=== PATIENT | male | born 1965 | race Caucasian/White ===

== ENCOUNTER 2016-08-02 22:30 | Emergency (ER) | payer BC ==
[2016-08-02] MEDS ORDERED: CLINDAMYCIN 600MG/50ML PREMIX 600 MG/50 ML BAG IVPB ONE (22:37)
--- NOTE | 2016-08-02 22:41 | Emergency Department Record ---
History of Present Illness - General Chief Complaint: Ankle/Foot Injury Stated Complaint: LT FOOT SWOLLEN Time Seen by Provider: 08/02/16 22:35 Source: Patient, Family, Old records reviewed Limitations: No limitations - History of Present Illness Initial Comments: 51 yo male presents with left heel redness, warmth, swelling and pain. No injury. The onset was 2 days ago. He had similar symptoms 01/2016 on the left foot that was closer to the toes. No fever. No current streaking. No overuse in the history. No history of gout. PCP is Aneudy LINDO Complaint: Other (foot pain and redness) -: Days(s) (2) Injury: Ankle: Left, Foot: Left Type of Injury: Other (No injury) Place: Home Severity: Moderate Improves With: Immobilization Worsens With: Weight bearing Context: Other (no injury) Associated Symptoms: Swelling, Other (warm and red) Treatments Prior to Arrival: Other (none) - Related Data Home Medications Medication Instructions Recorded Confirmed Last Taken Fluticasone/Salmeterol [Advair 1 each INH ASDIR 02/02/16 08/02/16 08/02/16 250-50 Diskus] Lisinopril [Zestril] 20 mg PO QHS 02/02/16 08/02/16 08/02/16 Lisinopril/Hydrochlorothiazide 1 each PO DAILY 02/02/16 08/02/16 08/02/16 [Lisinopril-Hctz 20-25 mg Tab] Simvastatin [Simvastatin] 40 mg PO QHS 02/02/16 08/02/16 08/02/16 Tiotropium [place] [Spiriva] 1 each INH ASDIR 02/02/16 08/02/16 08/02/16 Previous Rx's Medication Instructions Recorded Clindamycin HCl [Cleocin HCl] 300 mg PO QID #40 capsule 08/02/16 Hydrocodone/Acetaminophen [[place] 1 each PO Q6H #15 tablet 08/02/16 7.5-325 Tablet] Allergies Allergy/AdvReac Type Severity Reaction Status Date / Time No Known Drug Allergies Allergy Verified 02/02/16 15:35 Review of Systems Constitutional: Denies: Chills, Fever, Malaise, Weakness Eyes: Denies: Eye discharge ENT: Denies: Congestion, Throat pain Respiratory: Denies: Cough Cardiovascular: Denies: Chest pain, Palpitations, Syncope Endocrine: Denies: Fatigue Gastrointestinal: Denies: Abdominal pain, Diarrhea, Nausea, Vomiting Genitourinary: Denies: Dysuria, Frequency, Hematuria, Urgency Musculoskeletal: Reports: As per HPI, Arthralgia, Joint swelling. Denies: Back pain, Gout, Myalgia, Neck pain Skin: Reports: As per HPI, Change in color Neurological: Denies: Confusion, Headache Psychiatric: Denies: Anxiety Hematological/Lymphatic: Denies: Easy bleeding, Easy bruising, Swollen glands Past Medical History - SOCIAL HISTORY Smoking Status: Heavy tobacco smoker (>10/day) Drug Use: None - RESPIRATORY Hx Respiratory Disorders: Yes Hx COPD: Yes - CARDIOVASCULAR Hx Cardio Disorders: Yes Hx Hypertension: Yes Comment:: cholesterol - NEURO Hx Neuro Disorders: No - GI Hx GI Disorders: No - Hx Genitourinary Disorders: No - ENDOCRINE Hx Endocrine Disorders: No - MUSCULOSKELETAL Hx Musculoskeletal Disorders: No - PSYCH Hx Psych Problems: No - HEMATOLOGY/ONCOLOGY Hx Hematology/Oncology Disorders: No Physical Exam - General General Appearance: Alert, Oriented x3, Cooperative, No acute distress Limitations: No limitations - Head Head exam: Normal inspection - Eye Eye exam: Normal appearance - ENT ENT exam: Normal exam - Neck Neck exam: Normal inspection - Cardiovascular Cardiovascular Exam: Regular rate, Normal rhythm, Normal heart sounds Peripheral Pulses: 2+: Dorsalis Pedis (L) - Rectal Rectal exam: Deferred - exam: Deferred - Extremities Extremities exam: Full ROM, Joint swelling, Normal capillary refill, Tenderness , Other (The achilles is intact, no pain of the Achilles on Pino testing, no tenderness or pain along the tendon to suggest tendonitis). negative: Normal inspection, Calf tenderness Image of Feet: 1 - erythema, tender with swelling, no streeking, achilles is intact - Back Back exam: Reports: Full ROM - Neurological Neurological exam: Alert, Normal gait, Oriented X3, Reflexes normal - Psychiatric Psychiatric exam: Normal affect, Normal mood - Skin Skin exam: Erythema Course - Reevaluation(s) Reevaluation #1: No acute changes on the Uric Acid, CBC, BMP no acute changes 06/09/17 23:20 Medical Decision Making - Lab Data Result diagrams: 08/02/16 22:50 08/02/16 22:50 Disposition Disposition: Discharge Clinical Impression: Cellulitis Qualifiers: Site of cellulitis: extremity Site of cellulitis of extremity: lower extremity Laterality: left Qualified Code(s): L03.116 - Cellulitis of left lower limb Disposition: Home, Self-Care Condition: (1) Good Instructions: Cellulitis (ED) Additional Instructions: Elevate the left foot as much as possible Return if worse, streaking, fever or any new concerns Take the Clindamycin 4 times daily Call your doctor on Friday to schedule a recheck of the area Prescriptions: Clindamycin HCl [Cleocin HCl] 300 mg PO QID #40 capsule Hydrocodone/Acetaminophen [[place] 7.5-325 Tablet] 1 each PO Q6H #15 tablet Forms: Patient Portal Access Time of Disposition: 23:24
[2016-08-02 22:58] LABS: BASO % 0.5 % (0-6); EOS % 2.7 % (0-6); GRAN % 54.1 % (47-80); HEMATOCRIT 43.3 % (42.0-52.0); HEMOGLOBIN 14.4 gm/dl (14.0-18.0); LYMPH % 32.1 % (16-45); MEAN CELL VOLUME 92.3 fl (81-97); MEAN CORPUSCULAR HEMOGLOBIN 30.7 pg (27-33); MEAN CORPUSCULAR HGB CONC 33.3 g/dl (32-36); MEAN PLATELET VOLUME 8.7 fl (7.4-10.4); MONO % 10.6 % (0-9); PLATELET COUNT 280 K/uL (130-400); RED BLOOD COUNT 4.69 M/uL (4.40-5.70); RED CELL DISTRIBUTION WIDTH 14.2 % (11.5-14.5); WHITE BLOOD COUNT W/O DIFF 10.3 K/uL (4.2-12.2)
[2016-08-02 23:09] LABS: ANION GAP 7.8 (7-16); BLOOD UREA NITROGEN 14 mg/dL (9-20); CARBON DIOXIDE 27.2 mmol/L (22-30); CREATININE 0.6 mg/dL (0.66-1.25); EST GLOMERULAR FILTRATION RATE > 60 ml/min; GLUCOSE,RANDOM 97 mg/dL (70-110)
[2016-08-02] MEDS ORDERED: KETOROLAC 30 MG/ML VIAL IVP ONE (23:21)
[2016-08-02] MEDS ORDERED: HYDROCODONE/APAP 7.5/325MG TABLET PO ONE (23:23)
[2016-08-02 23:38] LABS: C-REACTIVE PROTEIN 1.6 mg/dL (0.0-0.9)
== END 2016-08-02 23:40 | disposition home or self-care (01) ==
LOC: ER 22:30
DX: L03.116 Cellulitis of left lower limb (principal)
CPT/HCPCS: 99284 ×2; 96365; 96375; 84550; 85025; 86140; 80048; J1885

== ENCOUNTER 2017-06-30 06:56 | Day surgery (SDC) | payer BC ==
[~2017-06-30 06:56] MED LIST: ACETAMINOPHEN 1,000 MG/100 ML BTL IV ONE; CEFAZOLIN 2 Gram 2 GM/50 ML BAG IVPB ONE; FAMOTIDINE 20MG TABLET PO ONE; MECLIZINE 25 MG TABLET PO ONE; METOCLOPRAMIDE 10 MG TABLET PO ONE
[2017-06-30] MEDS ORDERED: ONDANSETRON HCL IV 4 MG/2 ML VIAL IVP ONE (06:57)
[2017-06-30] MEDS ORDERED: FENTANYL PF 100MCG/2ML VIAL IV ONE (06:57)
[2017-06-30] MEDS ORDERED: SEVOFLURANE 250 ML INH ONE (06:57)
[2017-06-30] MEDS ORDERED: KETOROLAC 30 MG/ML VIAL IVP ONE (06:57)
[2017-06-30] MEDS ORDERED: MIDAZOLAM HCL 2MG/2ML VIAL IV ONE (06:57)
[2017-06-30] MEDS ORDERED: MORPHINE SULFATE 4MG/ML PREFILLED SYRINGE IVP ONE (06:57)
[2017-06-30] MEDS ORDERED: ROCURONIUM BROMIDE 50MG/5ML VIAL IV ONE (06:57)
[2017-06-30] MEDS ORDERED: MORPHINE SULFATE 5 MG/ML PFS IVP ONE (06:57)
[2017-06-30] MEDS ORDERED: NEOSTIGMINE 1 MG/1 ML,10ML VIAL IV ONE (06:57)
[2017-06-30] MEDS ORDERED: LIDOCAINE 2% MDV (20MG/ML) 20ML VIAL IV ONE (06:57)
[2017-06-30] MEDS ORDERED: HYDROCODONE/APAP 5/325MG TABLET PO ONE (06:57)
[2017-06-30] MEDS ORDERED: SUCCINYLCHOLINE 20 MG/ML 10ML IVP ONE (06:57)
[2017-06-30] MEDS ORDERED: PROPOFOL 10 MG/ML VIAL IV ONE (06:57)
[2017-06-30] MEDS ORDERED: GLYCOPYRROLATE 0.2 MG/ML ML IV ONE (06:57)
[2017-06-30] MEDS ORDERED: BUPIVACAINE 0.25% W/EPI MPF 30ML VIAL IVP ONE (06:57)
[2017-06-30] MEDS ORDERED: MORPHINE SULFATE PF 10MG/10ML VIAL IV ONE (06:57)
--- NOTE | 2017-07-01 13:30 | Operative Note ---
DATE OF SURGERY: 06/30/2017 Surgeon: Carlos Choi DO PREOPERATIVE DIAGNOSIS: Incisional hernia, reducible. POSTOPERATIVE DIAGNOSIS: Incisional hernia, reducible. OPERATION: Open incisional herniorrhaphy with mesh. Indication: The patient is a 51-year-old male who underwent a sigmoid resection, developed an incisional hernia at the superior aspect of his incision. We did discuss repair. Risks, benefits, and alternatives were discussed. Risks include but are not limited to bleeding, infection, acute or chronic pain, recurrence. He understood this fully. Thereafter, consent was signed and questions answered. PROCEDURE: The patient was taken to the operating room and placed in a supine position. General anesthesia was administered per the department of anesthesia. The patient's abdomen was shaved of hair and prepped and draped in the usual fashion. At this time, adequate timeout was performed. He did receive preoperative antibiotic as well as DVT prophylaxis. At this time, the area over the hernia was anesthetized with a total of 10 mL of 0.25% Sensorcaine with epinephrine. A 5 cm incision was made. This was carried down through the subcutaneous tissues to the hernia sac. Clean circumferential fascial edges were obtained. The hernia sac was then amputated and passed off the field. The hernia itself measured about 2.5 cm. An 8 cm Ventralight round mesh was obtained. This was placed in the intraperitoneal position. The upper skirt was sutured to the anterior rectus fascia with 2-0 Vicryl. The tails overlapping the fascia were sutured in place as well. The wound was then closed with 3-0 and 4-0 Vicryl. He was taken to the recovery room in satisfactory condition. CC: GENE ROBERTS MD, FACP [facility]
== END 2017-06-30 10:10 | disposition home or self-care (01) ==
LOC: SUR 06:56
PROVIDERS: ATTEND Surgery
DX: K43.2 Incisional hernia without obstruction or gangrene (principal)
CPT/HCPCS: J0330; J1885; J2274; J2405; J2710

== ENCOUNTER 2017-11-11 00:57 | Emergency (ER) | payer BC ==
--- NOTE | 2017-11-11 01:19 | Emergency Department Record ---
History of Present Illness - General Chief complaint: ENT Stated complaint: EAR PAIN Time Seen by Provider: 11/11/17 01:17 Source: Patient Mode of Arrival: Ambulatory Limitations: No limitations - History of Present Illness Initial comments: 52 yo male presents to ED for evaluation of left sided ear pain symptoms that have progressively worsened this evening. Patient reports recent URI symptoms with congestion and sinus pressure to the left forehead, denies fevers, chills, decreased hearing in the left ear or drainage from the left ear. Patient denies trauma to the ear, and denies health problems other than COPD secondary to smoking. Patient denies taking anything for his pain symptoms prior to arrival. MD complaint: Ear pain Onset/Timin -: Days(s) Location: L ear Severity: Mild Severity scale (1-10): 4 Quality: Aching, Dull Consistency: Constant Improves with: None Worsens with: None Associated Symptoms: Cough - Related Data Previous Rx's Medication Instructions Recorded Amoxicillin [Amoxil] 875 mg PO BID #20 tab 11/11/17 Allergies Allergy/AdvReac Type Severity Reaction Status Date / Time No Known Drug Allergies Allergy Verified 11/11/17 01:05 Travel Screening - Travel/Exposure Within Last 30 Days Have you traveled within the last 30 days?: No - Travel/Exposure Within Last Year Have you traveled outside the [place] in the last year?: No - Additonal Travel Details Have you been exposed to anyone with a communicable illness?: No - Travel Symptoms Symptom Screening: None Review of Systems Constitutional: Denies: Chills, Fever, Malaise, Night sweats Eyes: Denies: Eye discharge, Eye pain ENT: Reports: Congestion, Ear pain. Denies: Dental pain Respiratory: Denies: Cough, Dyspnea Cardiovascular: Denies: Chest pain, Dyspnea on exertion Endocrine: Denies: Fatigue, Heat or cold intolerance Gastrointestinal: Denies: Abdominal pain, Nausea, Vomiting Genitourinary: Denies: Incontinence, Retention Musculoskeletal: Denies: Arthralgia, Back pain Skin: Denies: Bruising, Change in color Neurological: Denies: Abnormal gait, Confusion, Headache, Seizure Psychiatric: Denies: Anxiety Hematological/Lymphatic: Denies: Anemia, Blood Clots Past Medical History - SOCIAL HISTORY Smoking Status: Current every day smoker Alcohol Use: None Alcohol Use Comment: quit 2 years Drug Use: None - RESPIRATORY Hx Respiratory Disorders: Yes Hx Bronchitis: Yes Hx COPD: Yes Hx Pneumonia: Yes - CARDIOVASCULAR Hx Cardio Disorders: Yes Hx Hypertension: Yes (on meds fair control) Comment:: hyperlipidemia - NEURO Hx Neuro Disorders: No - GI Hx GI Disorders: Yes Hx Abdominal Pain: Yes (tenderness from hernia) Hx Diverticulitis: Yes Hx of Polyps: Yes Comment:: pt had bowel resection a little undera yr ago because of severe diverticuli - Hx Genitourinary Disorders: No - ENDOCRINE Hx Endocrine Disorders: No - MUSCULOSKELETAL Hx Musculoskeletal Disorders: No - PSYCH Hx Psych Problems: No - HEMATOLOGY/ONCOLOGY Hx Hematology/Oncology Disorders: No Family Medical History Any Significant Family History?: No Physical Exam - General General Appearance: Alert, Oriented x3, Cooperative, Mild distress Limitations: No limitations - Head Head exam: Atraumatic, Normocephalic, Normal inspection Head exam detail: negative: Abrasion, Contusion, Bojorquez's sign, General tenderness, Hematoma, Laceration - Eye Eye exam: Normal appearance. negative: Conjunctival injection, Periorbital swelling, Periorbital tenderness, Scleral icterus - ENT Ear exam: Other (TMs have scar tissue present bilaterally, no erthema or dullness is present. No pain over tragus or with movement of the pinna, EAC appears normal.). negative: Auricular hematoma, Auricular trauma, External canal tenderness Nasal Exam: negative: Active bleeding, Discharge, Dried blood, Foreign body Mouth exam: negative: Drooling, Laceration, Muffled voice, Tongue elevation Teeth exam: negative: Dental caries, Dental tenderness # Throat exam: negative: Tonsillar erythema, Tonsillomegaly, R peritonsillar mass , L peritonsillar mass - Neck Neck exam: Normal inspection. negative: Meningismus, Tenderness - Respiratory Respiratory exam: Wheezes (MIld wheezes bilaterally). negative: Rales, Respiratory distress, Rhonchi, Stridor - Cardiovascular Cardiovascular Exam: Regular rate, Normal rhythm, Normal heart sounds - GI/Abdominal GI/Abdominal exam: Soft. negative: Rebound, Rigid, Tenderness - Rectal Rectal exam: Deferred - exam: Deferred - Extremities Extremities exam: Normal inspection. negative: Calf tenderness, Pedal edema, Tenderness - Back Back exam: Denies: CVA tenderness (R), CVA tenderness (L) - Neurological Neurological exam: Alert, Normal gait, Oriented X3 - Psychiatric Psychiatric exam: Normal affect, Normal mood - Skin Skin exam: Normal color. negative: Abrasion Type of lesion: negative: abrasion Course Vital Signs 11/11/17 01:02 Temperature 97.9 F Pulse Rate [ 93 H Pulse Ox Probe] Respiratory 20 Rate Blood Pressure 155/99 [Left Arm] Pulse Ox 96 - Reevaluation(s) Reevaluation #1: 11/11/17 01:23 Patient was seen and examined. Examination appears c/w viral URI Recommended symptomatic treatment with Rx for amoxicillin to be filled if symptoms fail to improve in 48-72 hours. There in no clear bacterial source for the patient's ear pain on examination at this time. Patient is otherwise well appearing and stable for discharge at this time. Disposition Disposition: Discharge Clinical Impression: URI (upper respiratory infection) Qualifiers: URI type: unspecified URI Qualified Code(s): J06.9 - Acute upper respiratory infection, unspecified Disposition: Home, Self-Care Condition: (2) Stable Instructions: Upper Respiratory Infection (ED) Additional Instructions: Return to ED if your symptoms worsen or if you have any concerns. Amoxicillin if your symptoms fail to improve in 48 hours. Follow-up with your family doctor in 3-5 days as directed. Prescriptions: Amoxicillin [Amoxil] 875 mg PO BID #20 tab Forms: Patient Portal Access Time of Disposition: 01:18 Quality - Quality Measures Quality Measures: N/A - Blood Pressure Screening Does Patient Have Any of the Following: No Blood Pressure Classification: Hypertensive Reading Systolic Measurement: 155 Diastolic Measurement: 99 Screening for High Blood Pressure: < First Hypertensive BP, F/U Documented > [ [id number]] First Hypertensive Follow-up Interventions: Referral to alternative/primary care provider.
== END 2017-11-11 01:27 | disposition home or self-care (01) ==
LOC: ER 00:57
DX: J06.9 Acute upper respiratory infection, unspecified (principal); H92.02 Otalgia, left ear; I10 Essential (primary) hypertension; F17.210 Nicotine dependence, cigarettes, uncomplicated
CPT/HCPCS: 99282